=== PATIENT | female | born 1940 | race African-American/Black ===

== ENCOUNTER 2019-06-24 18:12 | Emergency (ER) | payer MEDICARE, OTHER ==
[~2019-06-24] VITALS: Ht 160 cm; Wt 68.2 kg
[2019-06-24 20:05] VITALS: BP 145/79
[2019-06-24] MEDS ORDERED: ACETAMINOPHEN 500 MG TABLET PO ONE (20:30)
== END 2019-06-24 21:01 | disposition home or self-care (01) ==
LOC: EMS 18:13
DX: S83.91XA Sprain of unspecified site of right knee, initial encounter (principal); S83.92XA Sprain of unspecified site of left knee, initial encounter; W01.0XXA Fall on same level from slipping, tripping and stumbling without subsequent striking against object, initial encounter; Y93.89 Activity, other specified; Y92.89 Other specified places as the place of occurrence of the external cause; Y99.8 Other external cause status
CPT/HCPCS: 29505